=== PATIENT | male | born 1990 | race Caucasian/White ===

== ENCOUNTER 2021-05-05 13:08 | Emergency (ER) | payer MEDICAID ==
[~2021-05-05] VITALS: Ht 175.3 cm; Wt 90.7 kg
[2021-05-05 13:11] VITALS: BP_SYST 139
[2021-05-05 13:22] VITALS: BP_SYST 139
== END 2021-05-05 13:22 ==
LOC: SED 13:08
DX: B35.3 Tinea pedis (principal)
CPT/HCPCS: 99283